=== PATIENT | female | born 1950 | race Caucasian/White ===

== ENCOUNTER → 2016-04-19 | Outpatient (CLI) | payer MEDICARE, BC ==
--- NOTE | 2016-04-19 21:38 | CONS ---
DATE OF CONSULTATION: This patient a 66. She has been diagnosed having obstructive sleep apnea at [facility] in [facility] in 1997. She had another evaluation with a CPAP titration in 2008 at [facility] where the patient was given a new CPAP machine and she was set at a pressure of 10 cm of water. The patient is coming to our sleep center today with a chief complaint of her having some difficulties with increased sleepiness during the day. She thinks that her CPAP machine is not providing adequate treatment that she needs for her DAVID. At times she is snoring even while using her CPAP. She is averaging around 7 to 9 hours of sleep and this is typical for her. She is waking up tired and she is quite concerned about her sleep. She reports that she has been very compliant with CPAP therapy over the years and she has been using treatment without any interruption since 1997. No nocturia. No grinding of the teeth. No restlessness in the lower extremities. No nighttime shortness of breath or angina. Maury score currently is at 5. She had taken her CPAP machine to [facility] for a check and she was asked to come into the sleep center for further investigation and advice. PAST MEDICAL HISTORY: 1. Obesity. 2. Obstructive sleep apnea; details discussed above, currently on CPAP at a pressure of 10 cm of water and the patient is using a full nasal mask. 3. Diabetes mellitus. 4. Hypertension. Past surgical history includes , left foot surgery, colonoscopy and tubal ligation. ALLERGIES: Not known. Outpatient medication list includes: 1. Metformin. 2. Atenolol. 3. Lisinopril. SOCIAL HISTORY: The patient is a nonsmoker. No history of alcohol. No history of IV drugs. FAMILY HISTORY: Negative for any significant sleep breathing disorder. REVIEW OF SYSTEMS: Twelve-point review of systems was done and the positive findings all mentioned above in the history of present illness. BP is 163/68, pulse 67, respirations 18, temperature 97.5, saturation 97% on room air. Weight is 276. Height is 63 inches. Weight is 276. Height is 63 inches. BMI is 48.8. Neck size 18-1/2 inches. Maury score is 5. GENERAL APPEARANCE: Calm, comfortable. HEENT: Short neck, crowding posterior pharynx. Mallampati Class IV. There is no goiter or neck masses. LUNGS: Clear to auscultation. HEART: Sounds are regular rate and rhythm. Normal S1/S2. No S3, no murmurs. ABDOMEN: Soft, nontender. No organomegaly. EXTREMITIES: No edema. No cyanosis, or clubbing. IMPRESSION: 1. Symptomatic obstructive sleep apnea. The patient is coming in for a reinvestigation and reevaluation knowing that her treatment has been somewhat suboptimal and the patient has been experiencing increased fatigue and sleepiness during the day. 2. Obesity with a body mass index of 48.8. 3. Diabetes mellitus. 4. Hypertension. PLAN: Proceed another CPAP titration. During the study, the patient will have her CPAP pressure updated. She will be given a different mask interface which should further improve her comfort and compliance. She will benefit from weight loss. We discussed issues related to her sleep hygiene. I will see her back after the CPAP titration for further advice.
== END ==
LOC: SLEEP 15:01
PROVIDERS: ATTEND Internal Medicine Critical Care Medicine
DX: G47.33 Obstructive sleep apnea (adult) (pediatric) (principal); E66.9 Obesity, unspecified; E11.9 Type 2 diabetes mellitus without complications; I10 Essential (primary) hypertension; E78.00 Pure hypercholesterolemia, unspecified; I63.9 Cerebral infarction, unspecified; M19.90 Unspecified osteoarthritis, unspecified site
CPT/HCPCS: 99203; 99211

== ENCOUNTER → 2016-06-28 | Outpatient (CLI) | payer MEDICARE, BC ==
--- NOTE | 2016-06-29 08:40 | PN ---
This is a compliancy check regarding sleep apnea. This is a 66-year-old female patient with known history of obstructive sleep apnea, who underwent a successful CPAP titration and she was started at CPAP pressure of 12 cm of water. Note that her original study was done at [facility] in 2008. The patient is known to have diabetes and hypertension. Today she is coming in for a compliancy check. She is doing very well. She is using a Mirage FX nasal mask. Her average CPAP use around 7.9 hours per night and her CPAP use for more than 4 hours is around 100%. Her leak factor is 24 L/min. She is benefiting from CPAP therapy. She is waking up alert and refreshed during the day without any major hypersomnia or sleepiness. BP is 160/100, pulse 78, respirations 16, temperature 97.6, weight is 278. Lynn score is down to 2. GENERAL APPEARANCE: Calm, comfortable. HEENT: Crowding of the posterior pharynx. There is no goiter or neck mass. LUNGS: Clear to auscultation. HEART: Sounds are regular rate and rhythm. Normal S1, S2. ABDOMEN: Soft, nontender, no organomegaly. EXTREMITIES: No edema. No cyanosis or clubbing. IMPRESSION: 1. Obstructive sleep apnea in a patient who has undergone a successful CPAP titration and treatment and she has demonstrated excellent clinical response and compliance at a pressure of 12 cm of water. 2. Hypertension and the patient was made aware of the elevated blood pressure. 3. Diabetes mellitus. PLAN: 1. Encourage weight loss. 2. Continue using a Mirage FX mask. 3. Continue CPAP therapy at the same level of pressure, which is 12 cm of water, which is 2 cm higher than her original pressure. 4. Encourage following this patient with her primary care physician regarding her blood pressure. 5. See me back in a year's time, earlier if needed.
== END | disposition home or self-care (01) ==
LOC: SLEEP 15:52
PROVIDERS: ATTEND Internal Medicine Critical Care Medicine
DX: G47.33 Obstructive sleep apnea (adult) (pediatric) (principal); E11.9 Type 2 diabetes mellitus without complications; I10 Essential (primary) hypertension

== ENCOUNTER → 2017-07-04 | Outpatient (CLI) | payer MEDICARE, BC ==
--- NOTE | 2017-07-04 16:27 | PN ---
PROGRESS NOTE Isabel is 67, diagnosed having severe symptomatic obstructive sleep apnea. Currently the patient is undergoing successful CPAP therapy at a pressure of 12 cm of water. This is her yearly check. The patient was established having DAVID back based on a sleep study that was done [facility] in 2008. I am seeing this patient for a followup. Her weight has been essentially stable. She is still benefitting from the treatment and she tells me that she is unable to go to bed without using her CPAP. Her CPAP compliance data over the past 30 days shows excellent use with an average of 8.2 hours of CPAP use per night and her leak factor 13 L/minute and her AHI is down to 1.9. Her treatment remains successful. She is using a Mirage FX standard nose mask and I introduced her to an AirFit N20 small size mask which she likes and she is willing to try and do a switch if this second mask treatment remains successful. PHYSICAL EXAMINATION: BP is 168/94, pulse is 80, respirations 16, temperature 97.3, saturation 97% on room air and BMI 49.4, weight is 279. Height is 5 feet 3 inches. GENERAL APPEARANCE: Calm, comfortable. Head is atraumatic, normocephalic. Neck is short supple. There is no goiter or neck masses. Crowding of posterior pharynx is present and the patient is Mallampati class IV. LUNGS: Clear to auscultation. HEART: Sounds regular rhythm. Normal S1, S2. No S3. No murmurs. ABDOMEN: Soft, nontender. No organomegaly. EXTREMITIES: No edema. No cyanosis or clubbing. NEUROLOGIC: The patient is alert and oriented x3. There is no focal neurological deficits. PSYCHIATRIC: No anxiety or depression. IMPRESSION: 1. Obstructive sleep apnea. The patient continues to receive successful CPAP therapy at a pressure of 12. 2. Hypersomnia recovered. 3. Hypertension. 4. Diabetes mellitus. PLAN: 1. Continue CPAP with a pressure of 12. 2. Switch this patient to an AirFit N20 nose mask. 3. Encourage weight loss. 4. Treatment remains successful. Pressure will be kept unchanged. She will see me back in a year's time or earlier if needed. MMODL / IJN: [id number] /
== END | disposition home or self-care (01) ==
LOC: SLEEP 14:47
PROVIDERS: ATTEND Internal Medicine Critical Care Medicine
DX: G47.33 Obstructive sleep apnea (adult) (pediatric) (principal); I10 Essential (primary) hypertension; E11.9 Type 2 diabetes mellitus without complications; Z99.89 Dependence on other enabling machines and devices

== ENCOUNTER → 2018-07-17 | Outpatient (CLI) | payer MEDICARE, BC ==
--- NOTE | 2018-07-17 15:25 | SFUN ---
SLEEP CENTER FOLLOW UP NOTE Isabel is coming in for her annual check. She has obstructive sleep apnea. She is 68 years of age. On today's evaluation, her weight has been stable. She has no specific complaints. Her blood pressure is noted to be elevated at 174/90. In general, she is using her CPAP every night. She has been averaging about 7.8 hours of CPAP use per night. Her CPAP use for more than 4 hours 100%, leak is 11/L per minute, and her AHI is down to 1.7 while on treatment. Warren score is down to 3. No other new onset of medical problems and comorbidities over the past 12 months. REVIEW OF SYSTEMS: A 14-point review of system was done and positive findings are mentioned above history of present illness. No reported weight gain, no angina, no palpitations. No hypersomnia or sleepiness during the day. No nasal congestion. No sinus infections. No respiratory infections, no swelling in lower extremities. BP is 174/90, pulse 64, respirations 16, temperature 97.8, saturation is 98% on room air. Height is 5, 3, weight is 77 and BMI is 49. Warren score is at 3. GENERAL APPEARANCE: Calm, comfortable. HEAD: Atraumatic, normocephalic. NECK: Supple. Short Mallampati class IV. There is no goiter or neck mass. LUNGS: Clear to auscultation. HEART: Sounds regular rate and rhythm. Normal S1, S2. No murmurs. ABDOMEN: Soft, nontender. No organomegaly. EXTREMITIES: No edema. No cyanosis or clubbing. NEUROLOGIC: Alert and oriented x3. There is no focal neurological deficits. PSYCHIATRIC: Negative for anxiety or depression. SKIN: Negative for any wounds or ulceration. IMPRESSION: 1. Obstructive sleep apnea on a CPAP pressure of 12 cm of water. The treatment has been essentially successful for now. 2. Hypersomnia, recovered. 3. Hypertension with poorly controlled blood pressure. 4. Diabetes mellitus. PLAN: 1. Continue using the Mirage FX nose mask. 2. Continue CPAP therapy at the same level of pressure. 3. Encourage weight loss. 4. Follow up with the primary care physician regarding a tighter blood pressure control. 5. See me back in a year's time in followup, earlier if needed. MMODL / IJN: [id number] /
== END ==
LOC: SLEEP 13:09
PROVIDERS: ATTEND Internal Medicine Critical Care Medicine
DX: G47.33 Obstructive sleep apnea (adult) (pediatric) (principal); I10 Essential (primary) hypertension; E11.9 Type 2 diabetes mellitus without complications; Z99.89 Dependence on other enabling machines and devices

== ENCOUNTER → 2020-10-15 | Outpatient (CLI) | payer MEDICARE, BC ==
[2020-10-16 06:23] LABS: Red Top (Bentgrass) IgE <0.10 kU/L
[2020-10-16 06:24] LABS: Aspergillus fumagatus IgE <0.10 kU/L; Cladosporian herbarum IgE <0.10 kU/L; Cockroach IgE <0.10 kU/L
[2020-10-16 06:25] LABS: Cat Epith & Dander IgE <0.10 kU/L; Dog Dander IgE <0.10 kU/L
[2020-10-16 06:26] LABS: Dermato. farinae IgE <0.10 kU/L
[2020-10-16 06:27] LABS: Birch IgE <0.10 kU/L; Elm IgE <0.10 kU/L; Oak IgE <0.10 kU/L; Ragweed,Common IgE <0.10 kU/L
[2020-10-16 06:28] LABS: Alternaria alternata IgE <0.10 kU/L; Maple (Box Elder) IgE <0.10 kU/L
[2020-10-16 06:35] LABS: Immunoglobulin E 9.29 IU/mL (0.00-114.00)
== END | disposition home or self-care (01) ==
LOC: LABWHC1 15:30
PROVIDERS: ATTEND Internal Medicine Critical Care Medicine
DX: G47.33 Obstructive sleep apnea (adult) (pediatric) (principal)
CPT/HCPCS: 36415; 82785; 86003